=== PATIENT | male | born 1950 | race Caucasian/White ===

== ENCOUNTER 2018-02-18 10:08 | Day surgery (SDC) | payer OTHER, SELFPAY ==
[2018-02-11 10:14] VITALS: BMI 39.7
[2018-02-18 10:50] VITALS: BMI 40.9
[2018-02-18 10:58] VITALS: BP 131/80; PULSE 60; RESP 20; TEMP 36.2; O2SAT 97
--- NOTE | 2018-02-18 13:15 | PM.PREOP ---
Pre-operative Note Interval Note Pre-op Check: Yes History & Physical Reviewed by Physician Changes: No
[2018-02-18] MEDS: CEFAZOLIN 2 GM/100 ML FROZ.PIGGY IV (13:38)
--- NOTE | 2018-02-18 13:58 | SUR.OPER ---
Supine on padded OR bed, head on pillow, arms secured on padded arm boards at <90 degrees abduction, legs uncrossed, safety belt at thigh, tape over blanket over non-operative leg.
[2018-02-18] MEDS: BUPIVACAINE 0.5% (PF) VIAL 30 ML INJ (14:16)
[2018-02-18 14:35] VITALS: BP 125/71; PULSE 65; RESP 20; O2SAT 95
[2018-02-18] MEDS: HYDROCODONE/ACET 5/325 TABLET 1 TAB PO (14:54)
[2018-02-18 15:06] VITALS: BP 122/72; PULSE 60; RESP 16; TEMP 37.1; O2SAT 96
--- NOTE | 2018-02-18 17:43 | P.OP_ITS ---
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 Surgeon: Rosalee Parikh Click Yes if Unassisted: Yes Anesthesia Type: Sedation Operative Notes Closure Type: primary Specimen(s): none sent Estimated Blood Loss (mL): 20 Blood products transfused: none Procedure in detail: Patient was brought to the operating room and placed on the operating table in the supine position after induction of mild IV sedation local anesthesia using the above injectables was attained patient's left 3rd toe. The tourniquet was applied and foot and ankle were prepped and draped in the usual aseptic manner. After check of anesthesia , the tourniquet was inflated and the incision was made over the 3rd distal and proximal interphalangeal joint dorsally on the toe. The incision was deepened through subcutaneous tissues being careful to identify and retract all vital neural and vascular structures. All bleeders were cauterized and ligated as necessary. Immediately the field was invested fully with gouty tophus. This is gently scraped and removed using curettes etc and the noticeable contracture was seen at the distal interphalangeal joint. At this point there was a couple of areas of spurring at this joint and this large amount of tophus also appeared to be contributing to the contracture. A sharp excision of spurring and the distal tip of the intermediate and distal phalanx base were reduced using sharp bone cutters. This reduced the contracture and I was able to use a rasp to smooth this area down. At that point the toe was put through range of motion and was shown to have availability of motion without catching or grinding. The area was irrigated with copious amounts of normal sterile saline. The tourniquet was deflated and a prompt hyperemic response was seen to the toe. Monocryl was used to repair the remaining extensor tendon and part of this distally was completely frayed due to the investment of the gouty tophus, so this was placed within the former distal interphalangeal joint and sewn in with a Monocryl. Subcutaneous closure was also closed using Monocryl and the skin with nylon. A lightly compressive sterile dressing was placed on the foot and toe and he was transferred to the PACU with vital signs stable. Complications: none Condition: stable Disposition: PACU Plan for aftercare: Following a period of postoperative monitoring, the patient will be discharged home on written and oral postop instructions including keeping the dressing dry and intact, avoiding significant ambulation to the foot , elevating the foot when seated at home. DVT prevention of these have been reviewed. First postoperative visit has already been scheduled.
== END 2018-02-18 15:20 | disposition home or self-care (01) ==
PROVIDERS: PCP Family Medicine; Visit Provider Podiatrist
PROC: (CPT 28285; principal; 2018-02-18 12:15)
PROC: (CPT 28108; 2018-02-18 12:15)
DX: M1A.0721 Idiopathic chronic gout, left ankle and foot, with tophus (tophi) (principal); M24.575 Contracture, left foot; I48.91 Unspecified atrial fibrillation; G47.30 Sleep apnea, unspecified; E66.01 Morbid (severe) obesity due to excess calories; G47.33 Obstructive sleep apnea (adult) (pediatric); E78.5 Hyperlipidemia, unspecified; I10 Essential (primary) hypertension; I50.9 Heart failure, unspecified; Z87.891 Personal history of nicotine dependence
CPT/HCPCS: 28108; J0690; J2250; J2704; J3010

== ENCOUNTER → 2018-04-18 10:27 | Outpatient (CLI) | payer OTHER, MEDICARE, SELFPAY | PROVIDERS: PCP Family Medicine; Referring Provider Podiatrist; Visit Provider Family Medicine | DX: S91.105A Unspecified open wound of left lesser toe(s) without damage to nail, initial encounter (principal); M1A.9XX1 Chronic gout, unspecified, with tophus (tophi); L03.032 Cellulitis of left toe | CPT/HCPCS: 11042; 87070; 87075; 87077; 87186; 87205; 99203; 99213 ==

== ENCOUNTER → 2018-05-04 12:57 | Outpatient (CLI) | payer OTHER, SELFPAY | PROVIDERS: PCP Family Medicine; Visit Provider Family Medicine | DX: S91.105A Unspecified open wound of left lesser toe(s) without damage to nail, initial encounter (principal); L03.032 Cellulitis of left toe; M1A.9XX1 Chronic gout, unspecified, with tophus (tophi) | CPT/HCPCS: 11042; 87070; 87075; 87077; 87186; 87205; 99213 ==

== ENCOUNTER → 2018-05-11 09:55 | Outpatient (CLI) | payer OTHER, SELFPAY | PROVIDERS: PCP Family Medicine; Visit Provider Family Medicine | DX: S91.105A Unspecified open wound of left lesser toe(s) without damage to nail, initial encounter (principal); L03.032 Cellulitis of left toe; M1A.9XX1 Chronic gout, unspecified, with tophus (tophi); B96.29 Other Escherichia coli [E. coli] as the cause of diseases classified elsewhere | CPT/HCPCS: 11042 ==

== ENCOUNTER → 2018-05-18 08:55 | Outpatient (CLI) | payer OTHER, SELFPAY | PROVIDERS: PCP Family Medicine; Visit Provider Family Medicine | DX: M1A.9XX1 Chronic gout, unspecified, with tophus (tophi) (principal); S91.105A Unspecified open wound of left lesser toe(s) without damage to nail, initial encounter; L03.032 Cellulitis of left toe; B96.29 Other Escherichia coli [E. coli] as the cause of diseases classified elsewhere | CPT/HCPCS: 99213 ==

== ENCOUNTER → 2018-05-24 09:46 | Outpatient (CLI) | payer OTHER, SELFPAY | PROVIDERS: PCP Family Medicine; Visit Provider Family Medicine | DX: Z48.817 Encounter for surgical aftercare following surgery on the skin and subcutaneous tissue (principal) | CPT/HCPCS: 99212; 99213 ==

== ENCOUNTER → 2018-08-26 10:55 | Outpatient (CLI) | payer OTHER, SELFPAY ==
--- NOTE | 2018-08-26 | DI.RAD.S_ITS ---
PROCEDURE: XR CERVICAL SPINE 2V OR 3V INDICATIONS: NECK PAIN TECHNIQUE: 4 view(s) of the cervical spine were acquired. COMPARISON: None. FINDINGS: Bones: No fractures or dislocations to the C5 level. The lateral masses of C1 appear intact on the odontoid view. No suspicious bony lesions. Multilevel degenerative endplate sclerosis and spurring. Diffuse facet arthropathy. Mild narrowing of the visualized cervical disc spaces. Straightening of the normal cervical lordosis. Soft tissues: No prevertebral soft tissue swelling. IMPRESSION: Diffuse cervical spondylosis and facet arthropathy with straightening of the normal cervical lordosis. Dictated by: Davey Randall M.D. on 08/26/2018 at 11:33 Approved by: Davey Randall M.D. on 08/26/2018 at 11:35
== END ==
PROVIDERS: PCP Family Medicine; Visit Provider Family Medicine
DX: M50.122 Cervical disc disorder at C5-C6 level with radiculopathy (principal)
CPT/HCPCS: 72040

== ENCOUNTER → 2018-09-23 13:09 | Outpatient (CLI) | payer OTHER, SELFPAY ==
--- NOTE | 2018-09-23 13:24 | DI.MRI.S_ITS ---
PROCEDURE: MR CERVICAL SPINE WO CON INDICATIONS: CERVICAL RADICULOPATHY TECHNIQUE: Noncontrast sagittal T1 spin echo and T2 fast spin echo, sagittal STIR, foraminal oblique sagittal T2 fast spin echo, and axial gradient echo or T2 fast spin echo through the cervical spine. COMPARISON: [facility], CR, XR CERVICAL SPINE 2V OR 3V, 08/26/2018, 11:04. FINDINGS: Image quality: Limited by body habitus. Alignment and Curvature: There is trace C4 and C5 anterolisthesis. Bone Marrow: Minimal reactive endplate change noted adjacent to the C4-C5 and C5-C6 discs. Spinal Cord: Visualized spinal cord has normal size and signal. No cerebellar tonsillar herniation. Paraspinous Soft Tissues: No paravertebral masses. Prevertebral soft tissues are normal in thickness. C2-C3: Loss of disc signal. No central stenosis. Mild bilateral facet hypertrophy. Mild bilateral neural foraminal narrowing. No neural impingement. C3-C4: Loss of disc signal. Minimal, diffuse disc bulge. Mild bilateral facet hypertrophy. Moderate bilateral uncovertebral joint hypertrophy. Severe bilateral neural foraminal narrowing with compression of the exiting C4 nerve roots. C4-C5: Loss of disc signal and slight loss of disc height. Mild to moderate bilateral facet hypertrophy. Mild right and moderate left uncovertebral joint hypertrophy. Mild narrowing of the central canal. Moderate right and severe left neural foraminal narrowing and compression of the exiting left C5 nerve root. C5-C6: Loss of disc signal and height. Moderate, diffuse disc bulge. Moderate-sized central disc protrusion superimposed upon diffuse disc bulge. Mild to moderate narrowing of the central canal. Mild bilateral facet hypertrophy. Moderate right and mild left uncovertebral joint hypertrophy. Severe right and moderate left neural foraminal narrowing with compression of the exiting right C6 nerve root. C6-C7: Loss of disc signal. Mild, diffuse disc bulge. No central stenosis. No neural foraminal narrowing. No neural impingement. C7-T1: Normal appearance. IMPRESSION: 1. Multilevel degenerative disease 2. Multilevel facet arthropathy and uncovertebral joint hypertrophy. 3. Mild to moderate C5-C6 central canal narrowing. Mild C4-C5 central canal narrowing. 4. Severe bilateral C3-C4 neural foraminal narrowing. Moderate right and severe left C4-C5 neural foraminal narrowing. Severe right and moderate left C5-C6 neural foraminal narrowing. 5. Compression of the exiting bilateral C4 nerve roots, the exiting left C5 nerve root and the exiting right C6 nerve root secondary to neural foraminal narrowing. Please correlate with clinical data. Dictated by: Earline White MD, PhD on 09/23/2018 at 15:44 Approved by: Earline White MD, PhD on 09/23/2018 at 15:54
== END ==
PROVIDERS: PCP Family Medicine; Referring Provider Orthopaedic Surgery; Visit Provider Family Medicine
DX: M50.122 Cervical disc disorder at C5-C6 level with radiculopathy (principal); M47.22 Other spondylosis with radiculopathy, cervical region; M48.02 Spinal stenosis, cervical region
CPT/HCPCS: 72141

== ENCOUNTER → 2021-03-24 11:54 | Outpatient (CLI) | payer MEDICARE, OTHER, SELFPAY ==
[2021-03-24 20:18] LABS: BUN Creatinine Ratio 20.8 (6-22); Blood Urea Nitrogen 20 mg/dL (9-20); Calcium 10.4 mg/dL (8.4-10.2); Carbon Dioxide 32 mmol/L (22-32); Chloride 100 mmol/L (98-107); Estimated Glomerular Filt Rate > 60.0 mL/min (>60); Glucose 136 mg/dL (80-110); HEMOLYSIS < 15 (0-50); Magnesium 1.8 mg/dL (1.6-2.3); Potassium 4.6 mmol/L (3.4-5.1); Sodium 142 mmol/L (137-145)
== END ==
PROVIDERS: PCP Family Medicine; Referring Provider Nurse Practitioner Family; Visit Provider Nurse Practitioner Family
DX: Z51.81 Encounter for therapeutic drug level monitoring (principal); Z79.899 Other long term (current) drug therapy
CPT/HCPCS: 80048; 83735

== ENCOUNTER → 2021-08-07 10:59 | Outpatient (CLI) | payer MEDICARE, OTHER, SELFPAY ==
[2021-08-07 19:11] LABS: Hemoglobin A1C% w Est Avg Glu 7.8 % (4.0-6.0)
[2021-08-07 19:15] LABS: Add Manual Diff / Slide Review NO; Alanine Aminotransferase 29 IU/L (<50); Albumin 4.8 g/dL (3.5-5.0); Albumin Globulin Ratio 1.6 (1.0-2.8); Alkaline Phosphatase 59 U/L (38-126); Aspartate Aminotransferase 26 IU/L (17-59); Basophils Absolute Auto 100 /uL (0-100); Basophils Percent Auto 0.6 % (0-2); Bilirubin Total 0.6 mg/dL (0.2-1.3); Blood Urea Nitrogen 17 mg/dL (9-20); Calcium 9.7 mg/dL (8.4-10.2); Carbon Dioxide 24 mmol/L (22-32); Chloride 104 mmol/L (98-107); Cholesterol 201 mg/dL (140-199); Eosinophils Absolute Auto 200 /uL (0-450); Eosinophils Percent Auto 2.2 % (2-4); Estimated Glomerular Filt Rate > 60.0 mL/min (>60); Glucose 132 mg/dL (80-110); HDL Cholesterol 31 mg/dL (40-60); HEMOLYSIS < 15 (0-50); Hematocrit 41.6 % (41-53); Hemoglobin 13.8 g/dL (13.5-17.5); LDL Cholesterol Calculated 119 mg/dL (<100); Lymphocytes Absolute Auto 2400 /uL (1100-4500); Lymphocytes Percent Auto 27.9 % (25-40); Mean Corpuscular HGB Conc 33.1 % (30-36); Mean Corpuscular Hemoglobin 28.9 PG (26-34); Mean Corpuscular Volume 87.5 fL (80-100); Monocytes Absolute Auto 700 /uL (0-900); Monocytes Percent Auto 7.5 % (3-14); Neutrophils Absolute Auto 5300 /uL (1500-7000); Neutrophils Percent Auto 61.8 % (50-75); Platelet Count 328 X10^3/uL (150-400); Potassium 4.6 mmol/L (3.4-5.1); Red Blood Cell Count 4.76 X10^6/uL (4.5-5.9); Red Cell Distribution Width 14.5 % (11.6-14.8); Sodium 139 mmol/L (137-145); Total Protein 7.8 g/dL (6.3-8.2); Triglycerides 256 mg/dL (35-150); White Blood Cell Count 8.7 X10^3/uL (4.5-11.0)
[2021-08-07 19:24] LABS: Vitamin D 25 Hydroxy (D3) 37.5 ng/mL (30.0-100.0)
[2021-08-07 19:39] LABS: TSH w/ Reflex to FT4 2.53 uIU/mL (0.47-4.68)
[2021-08-08 10:15] LABS: Calcium 9.8 mg/dL (8.6-10.2); Parathyroid Hormone, Intact 39 pg/mL (15-65)
[2021-08-15 20:16] LABS: 1,25-Dihydroxy, Vitamin D-2 <10 pg/mL (.)
== END ==
PROVIDERS: PCP Physician Assistant; Referring Provider Physician Assistant; Visit Provider Physician Assistant
DX: E21.3 Hyperparathyroidism, unspecified (principal); Z12.5 Encounter for screening for malignant neoplasm of prostate; M10.9 Gout, unspecified; I10 Essential (primary) hypertension; E78.1 Pure hyperglyceridemia
CPT/HCPCS: 80053; 80061; 82306; 82310; 82652; 83036; 83970; 84443; 84550; 85025; G0103

== ENCOUNTER → 2021-12-11 09:18 | Outpatient (CLI) | payer MEDICARE, OTHER, SELFPAY ==
--- NOTE | 2021-12-15 15:53 | DIAB.MNT ---
Initial Diabetes Medical Nutrition Therapy Assessment Name: Solomon Ritchie Date: 12/11/21 Time: [id number] Dx: Type II Diabetes Provider: Cindy Carbajal presents today for initial visit with his , Kristyn. Reports a new diagnosis of T2Dm in August with an HgA1c of 7.8%. Has declined taking Metformin. Would prefer to reverse this with diet. Limited in exercise due to knee pain. Today he would like to know more about diabetes, blood sugar monitoring goals, and nutrition. States he and Kristyn recently went on a 13 month RV trip that included a lot of eating out at restaurants and breweries. Since diagnosis, he has cut down on beer (to 1-3 per week) and reduced sugar and carb intake. Reports h/o keto, intermittent fasting, paleo, and Mediterranean diet. Limited sleep at night, 3 hours. States he cannot turn off his brain. Uses audiobooks at night. Takes naps after eating, hyperglycemia? labs indicate elevated LDL, reports high intake of beef and sometimes butter. 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 No UE exercises. enjoys bike riding. Self-Monitoring Blood Glucose: None. Was checking, but states he was unsure of his goals. FBG was 108-160 mg/dL per report. Diabetes Medications: None Pertinent Labs: 08/2021 HgA1c: 7.8 % T Cholesterol: 201 LDL: 119 HDL: 31 Past Medical History: (Last Updated 08/07/21 @ 12:18 by Marylu White PA-C) Afib (~2001) Anticoagulated Bilateral carotid artery occlusion (~2014) Cancer (~2003) Excision - Neck/facial nerve/radiation Cardiomyopathy, idiopathic Carpal tunnel syndrome CHF (congestive heart failure) Chronic cough Chronic gout, unspecified, with tophus (tophi) Colon polyps Constipation Essential hypertension Foot pain H/O hyperparathyroidism Headache Hearing loss Heart disease History of cardioversion Multiple History of diverticulitis Hypercalcemia Idiopathic cardiomyopathy Knee pain Bone on bone Melanoma Obesity, Class III, BMI 40-49.9 (morbid obesity) Pain in right foot Peripheral neuropathy Plantar warts Shortness of breath Shoulder pain Sleep apnea Mild, no tx recommended Tinnitus Nutrition Rx: Carbohydrates: Meal: 45g (60g max) Snack:15-30g Nutrition Diagnosis: - Nutrition and food related knowledge deficit r/t newly dx with T2DM aeb hgA1c 7.8% and pt report - Predicted excessive saturated fat intake r/t nutrition knowledge deficit aeb diet recall and report of high beef intake and elevated LDL. - Physical inactivity r/t knee pain aeb pt report Intervention: This participant was very receptive. Provided appropriate educational handouts. Discussed the following topics: Completed intake assessment. Discussed barriers to care. Pathophysiology of T2DM HgA1c, its correlation to blood glucose numbers, and rationale for goal Importance of self-monitoring, how often, and when to check. Suggested checking at different times to evaluate meals. BG goals per ADA. FB-130 and 1-2hr pc <180 mg/dL Plate Method, impact of macronutrients on blood sugar, meal timing, carbohydrate counting, pairing macronutrients and spreading out carbohydrates for better blood glucose management Recommended servings for carbohydrates at meals and snacks Heart health nutrition Role of physical activity and following provider guidelines for safety Created SMART goals for patient self-care and success. Goals: Restart checking BG and keep a log Keep food log Aim for 45g at meals Follow-up: MICHELLE MONREAL follow-up in one month for DSME classes and 1:1 follow-up Staci Corona RDN, [facility] Certified Diabetes Care and Customer Complaint Clerk P: [phone] Thank you for this referral
== END ==
PROVIDERS: PCP Physician Assistant; Referring Provider Physician Assistant; Visit Provider Physician Assistant
DX: E11.9 Type 2 diabetes mellitus without complications (principal); Z71.3 Dietary counseling and surveillance
CPT/HCPCS: 97802

== ENCOUNTER → 2022-01-13 08:49 | Outpatient (CLI) | payer MEDICARE, OTHER, SELFPAY ==
--- NOTE | 2022-01-14 17:21 | DIAB.FU ---
Diabetes Education Class Series: Diabetes and Nutrition Name: Solomon Ritchie Date: 01/13/22 Time: [id number] Solomon presents today for 1 of 3 DSME classes with his , Kristyn. States he is working on keeping food and BG records. Has questions today about saturated fat in proteins. Enjoys red meat multiple times per week. States he is limited in his ability to be active but is motivated to make diet changes. Has questions about FBG elevations. Class topics covered: ? Debunk nutrition myths and discuss how to sustain healthy eating long-term through moderation and variety ? Define macronutrients and determine their impact on blood sugars ? Discuss macronutrient pairing, Plate Method, and carb counting ? Review general recommendations for carbohydrates ? Practice label reading ? Discuss the role of fiber in diabetes and provide examples of sources ? Review heart health nutrition: fats, fiber, and sodium ? Determine recommendations for grocery shopping and eating out ? Discuss alcohol recommendations ? Review the role of substitute sugars in diabetes management ? Set SMART goals Goal Set: Walk or movement outside for 15 min 3 x per week min. Follow-up: Diabetes Physiology and Medication Class in one week and 1:1 f/u tomorrow 01/14/22 Staci Corona RDN, [facility] Certified Diabetes Care and [employer] Transportation Worker P: [phone] Thank you for this referral
== END ==
PROVIDERS: PCP Physician Assistant; Referring Provider Physician Assistant; Visit Provider Physician Assistant
DX: E11.9 Type 2 diabetes mellitus without complications (principal); Z71.3 Dietary counseling and surveillance
CPT/HCPCS: G0109

== ENCOUNTER → 2022-01-14 09:01 | Outpatient (CLI) | payer MEDICARE, OTHER, SELFPAY ==
--- NOTE | 2022-01-22 17:08 | DIAB.MNTFU ---
Follow-up Diabetes Medical Nutrition Therapy Assessment Name: Solomon Ritchie Date: 01/14/22 Time: 910:10a Dx: Type II Diabetes Solomon presents for 1:1 follow-up with his Kristyn. States he has not been tracking food or BG very well recently due to [place] trip and recent covid. Endorses high saturated fat intake with beef portions 3-4x per week. Limited veggie intake but loves veggies. Has questions about a supplement to help with DM. No recent eye exam Does not check feet No annual flu shot Diet Recall: : eggs x 3, 2-4 toast 5-7p: sweet potato x with pro and veggies ; enchiladas avoids HS snack, but sometimes cookies or ice cream Anthropometrics: Ht: 5'11 Wt: 292# reported Physical Activity: Limited by knee pain. Interested in short frequent walks. No current program. Self-Monitoring Blood Glucose: Trying to check 1-2x per day. Recent readings below indicate some elevations in FBG per ADA guidelines. Few readings later in the day. One reading of 203 mg/dL. Date Pre Post Pre Post Pre Post HS 01/09 144 124 01/10 01/11 145 203 122 01/12 158 01/13 147 Diabetes Medications: None Pertinent Labs: 08/2021 HgA1c: 7.8 % T Cholesterol: 201 LDL: 119 HDL: 31 Past Medical History: (Last Updated 08/07/21 @ 12:18 by Marylu White PA-C) Afib (~2001) Anticoagulated Bilateral carotid artery occlusion (~2014) Cancer (~2003) Excision - Neck/facial nerve/radiation Cardiomyopathy, idiopathic Carpal tunnel syndrome CHF (congestive heart failure) Chronic cough Chronic gout, unspecified, with tophus (tophi) Colon polyps Constipation Essential hypertension Foot pain H/O hyperparathyroidism Headache Hearing loss Heart disease History of cardioversion Multiple History of diverticulitis Hypercalcemia Idiopathic cardiomyopathy Knee pain Bone on bone Melanoma Obesity, Class III, BMI 40-49.9 (morbid obesity) Pain in right foot Peripheral neuropathy Plantar warts Shortness of breath Shoulder pain Sleep apnea Mild, no tx recommended Tinnitus Nutrition Rx: Carbohydrates: Meal: 45g (60g max) Snack:15-30g Nutrition Diagnosis: - Nutrition and food related knowledge deficit r/t newly dx with T2DM aeb hgA1c 7.8% and pt report - Predicted excessive saturated fat intake r/t nutrition knowledge deficit aeb diet recall and report of high beef intake and elevated LDL. - Physical inactivity r/t knee pain aeb pt report - Predicted inadequate fiber intake r/t limited whole grains, fruit and vegetables aeb diet recall Intervention: This participant was very receptive. Provided appropriate educational handouts. Discussed the following topics: Blood sugar review and trends. Impact of food intake on results. Plate Method, impact of macronutrients on blood sugar, meal timing, carbohydrate counting, pairing macronutrients and spreading out carbohydrates for better blood glucose management Heart health nutrition: fats Meal planning and carb counting review Physical activity plan and progress Created SMART goals for patient self-care and success. Goals: Restart checking BG and keep a log- improved Keep food log- improved Aim for 45g at meals- in progress Add salad to lunch and dinner- new Buy veggies for eggs- new Measure carb portions at meals - new Follow-up: MICHELLE MONREAL follow-up in 1 week for class 2 of 3 for DSME Staci Corona RDN, [facility] Certified Diabetes Care and [place] Washing System Operator P: [phone] Thank you for this referral
== END ==
PROVIDERS: PCP Physician Assistant; Referring Provider Physician Assistant; Visit Provider Physician Assistant
DX: E11.9 Type 2 diabetes mellitus without complications (principal); Z71.3 Dietary counseling and surveillance
CPT/HCPCS: 97803

== ENCOUNTER → 2022-01-20 09:26 | Outpatient (CLI) | payer MEDICARE, OTHER, SELFPAY ==
--- NOTE | 2022-01-28 13:22 | DIAB.FU ---
Diabetes Education Class Series: Diabetes Physiology and Medications Name: Solomon Ritchie Date: 01/20/22 Time: [id number] Solomon presented with , Kristyn for class. He participated well in class and seemed very receptive. Class topics covered: ? Diabetes pathophysiology ? Discuss different types of diabetes ? Review criteria for diagnosing diabetes ? Review HgA1c measurement and associated blood sugars ? Review blood sugar monitoring safety, technique, and goals ? Discuss ways to reduce complications associated with diabetes, includes microvascular and macrovascular complications ? Review diabetes medications types, action, and side effects ? Health care visits recommended for people with T2DM ? Immunization recommended for people with T2DM ? SMART goals review Follow-up: Diabetes Lifestyle and Ongoing Support Class next week Staci Corona RDN, [facility] Certified Diabetes Care and Testing Consultant P: [phone] Thank you for this referral
== END ==
PROVIDERS: PCP Physician Assistant; Referring Provider Physician Assistant; Visit Provider Physician Assistant
DX: E11.9 Type 2 diabetes mellitus without complications (principal); Z71.3 Dietary counseling and surveillance
CPT/HCPCS: G0109

== ENCOUNTER → 2022-01-27 09:16 | Outpatient (CLI) | payer MEDICARE, OTHER, SELFPAY ==
--- NOTE | 2022-01-29 17:00 | DIAB.FU ---
Diabetes Education Class Series: Diabetes Lifestyle Change and Ongoing Support Name: Solomon Ritchie Date: 01/27/22 Time: [id number] Solomon presented to class 3 of 3 with his , Kristyn. States he has been working on using low carb tortillas and ww bread. Also endorses reading food labels. States he still is working on exercise, and he is interested in resistance bands for UE exercise. Class topics covered: ? Discuss the difference between physical activity and exercise ? Determine physical activity benefits and impact on diabetes ? Review physical activity recommendations and safety ? Discuss emergency preparedness ? Discuss diabetes and emotions (diabetes burnout/distress) ? Review and practice stress management techniques ? Review support groups and community resources ? Discuss the role of family support in diabetes care ? What is going well? Challenges of diabetes? ? Set SMART goals Follow-up: MICHELLE MONREAL follow-up in 4 weeks Staci Corona RDN, [facility] Certified Diabetes Care and Pad Hand P: [phone] Thank you for this referral
== END ==
PROVIDERS: PCP Physician Assistant; Referring Provider Physician Assistant; Visit Provider Physician Assistant
DX: E11.9 Type 2 diabetes mellitus without complications (principal); Z71.3 Dietary counseling and surveillance
CPT/HCPCS: G0109

== ENCOUNTER → 2022-02-26 12:56 | Outpatient (CLI) | payer MEDICARE, OTHER, SELFPAY ==
--- NOTE | 2022-02-26 15:47 | DIAB.FU ---
Follow-up Diabetes Education Assessment Name: Solomon Ritchie Date: 02/26/22 Time: 1-150p Dx: Type II Diabetes Solomon presents with , Kristyn for DM follow-up. Has not seen PCP since DSME and no appt scheduled. No new HgA1c. Historically wants to avoid medication management. States he has been paying more attention to carbs. Some breakfasts still high (ie oatmeal with toast and PB and fruit/raisins). Has been choosing brown rice over white, whole grain bread over white. Still having red meat often, but trying to reduce frequency. Reports difficulty with portions at times, especially when Kristyn offers her leftovers to him. Considering intermittent fasting and/or an online diet program. Has done intermittent fasting in the past with 7 hour eating window 10a-5p. Feels he has lost weight doing this before. Feels weight loss will help knee pain, though has seen a specialist in the past and needs a knee replacement. Expressed fear with cutting my leg in half, though has family/friends that have had positive experiences with this procedure. Has dental appt. No eye appt scheduled. Physical Activity: Bought resistance bands for UE exercises. use to love to hike and walk, but with knee pain he cannot do this comfortably. Physical activity has been a tough stage of change effort since starting program. Self-Monitoring Blood Glucose: Only checking FB-142 mg/dL Diabetes Medications: None Pertinent Labs: 08/2021 HgA1c: 7.8 % T Cholesterol: 201 LDL: 119 HDL: 31 Past Medical History: (Last Updated 08/07/21 @ 12:18 by Marylu White PA-C) Afib (~2001) Anticoagulated Bilateral carotid artery occlusion (~2014) Cancer (~2003) Excision - Neck/facial nerve/radiation Cardiomyopathy, idiopathic Carpal tunnel syndrome CHF (congestive heart failure) Chronic cough Chronic gout, unspecified, with tophus (tophi) Colon polyps Constipation Essential hypertension Foot pain H/O hyperparathyroidism Headache Hearing loss Heart disease History of cardioversion Multiple History of diverticulitis Hypercalcemia Idiopathic cardiomyopathy Knee pain Bone on bone Melanoma Obesity, Class III, BMI 40-49.9 (morbid obesity) Pain in right foot Peripheral neuropathy Plantar warts Shortness of breath Shoulder pain Sleep apnea Mild, no tx recommended Tinnitus Intervention: This participant was very receptive. Provided appropriate educational handouts. Discussed the following topics: Recent blood sugar results and HgA1c recs/rationale Medication management, potential for Metformin if HgA1c cont above 7% Physical activity barriers, namely knee pain and options Review of general nutrition recommendations and current intake Physical activity plan and impact on blood sugars Prevention of complications: dental and eye appointments Created SMART goals for patient self-care and success. Goals: Add salad to lunch and dinner- met Buy veggies for eggs- met Measure carb portions at meals - in progress/improved schedule eye exam- new Don't eat Kristyn's leftovers (she wont offer)- new Consider recs for knee replacement by specialist prn- new Resistance bands 3x per week- new Schedule with [facility] for f/u- new Follow-up: MICHELLE MONREAL follow-up prn. Offered follow-up, Solomon would like to call for support prn. he and Kristyn do seem to have most of the DM basics implemented, and are aware of where there is room for improvement. We did discuss the importance of getting his HgA1c/BG down, especially if he decides to get a knee replacement, which seems would help his physical activity/ BG fci. He agrees, but still feels weary of medication management. He was encouraged to follow-up with provider. Staci Corona RDN, [facility] Certified Diabetes Care and Wood Cut Engraver P: [phone] Thank you for this referral
== END ==
PROVIDERS: PCP Physician Assistant; Referring Provider Physician Assistant; Visit Provider Physician Assistant
DX: E11.9 Type 2 diabetes mellitus without complications (principal); Z71.3 Dietary counseling and surveillance
CPT/HCPCS: G0108

== ENCOUNTER → 2022-03-05 14:24 | Outpatient (CLI) | payer MEDICARE, OTHER, SELFPAY ==
[2022-03-05 19:38] LABS: BUN Creatinine Ratio 20.2 (6-22); Blood Urea Nitrogen 21 mg/dL (9-20); Calcium 9.6 mg/dL (8.4-10.2); Carbon Dioxide 25 mmol/L (22-32); Chloride 103 mmol/L (98-107); Estimated Glomerular Filt Rate > 60 mL/min (>60); Glucose 160 mg/dL (80-110); HEMOLYSIS < 15 (0-50); Magnesium 1.6 mg/dL (1.6-2.3); Potassium 4.2 mmol/L (3.4-5.1); Sodium 139 mmol/L (137-145)
[2022-03-05 19:40] LABS: Uric Acid 6.3 mg/dL (3.5-8.5)
[2022-03-05 19:59] LABS: Hemoglobin A1C% w Est Avg Glu 6.4 % (4.0-6.0)
== END ==
PROVIDERS: PCP Physician Assistant; Visit Provider Nurse Practitioner Family
DX: Z79.899 Other long term (current) drug therapy (principal); Z51.81 Encounter for therapeutic drug level monitoring; M10.9 Gout, unspecified; E11.9 Type 2 diabetes mellitus without complications
CPT/HCPCS: 80048; 83036; 83735; 84550

== ENCOUNTER → 2023-01-13 09:05 | Outpatient (CLI) | payer MEDICARE, OTHER, SELFPAY ==
[2023-01-13 10:12] LABS: Appearance Urine UA CLEAR; Bilirubin Urine UA NEGATIVE (NEGATIVE); Color Urine UA YELLOW; Glucose Urine UA NEGATIVE (Negative); Ketones Urine UA NEGATIVE (NEGATIVE); Leukocyte Esterase Urine UA NEGATIVE (NEGATIVE); Nitrite Urine UA NEGATIVE (Negative); Occult Blood Urine UA NEGATIVE (Negative); Protein Urine UA NEGATIVE (Negative); Specific Gravity Urine UA 1.015 (1.000-1.035); Urobilinogen Urine UA 0.2 E.U./dL (0.2); pH Urine UA 5.5 (4.5-8.0)
[2023-01-13 10:13] LABS: Add Manual Diff / Slide Review NO; Basophils Absolute Auto 100 /uL (0-100); Basophils Percent Auto 0.6 % (0-2); Eosinophils Absolute Auto 200 /uL (0-450); Eosinophils Percent Auto 2.6 % (2-4); Hematocrit 40.1 % (41-53); Hemoglobin 13.8 g/dL (13.5-17.5); Lymphocytes Absolute Auto 2100 /uL (1100-4500); Lymphocytes Percent Auto 25.4 % (25-40); Mean Corpuscular HGB Conc 34.3 % (30-36); Mean Corpuscular Volume 87.4 fL (80-100); Monocytes Absolute Auto 700 /uL (0-900); Monocytes Percent Auto 8.2 % (3-14); Neutrophils Absolute Auto 5100 /uL (1500-7000); Neutrophils Percent Auto 63.2 % (50-75); Platelet Count 328 X10^3/uL (150-400); Red Blood Cell Count 4.58 X10^6/uL (4.5-5.9); Red Cell Distribution Width 13.9 % (11.6-14.8); White Blood Cell Count 8.1 X10^3/uL (4.5-11.0)
[2023-01-13 10:17] LABS: Hemoglobin A1C% w Est Avg Glu 7.8 % (4.0-6.0)
[2023-01-13 10:41] LABS: Creatinine Urine Random 52.5 mg/dL
[2023-01-13 10:42] LABS: HEMOLYSIS < 15 (0-50); Iron 100 ug/dL (49-181)
[2023-01-13 10:49] LABS: Microalbumin Urine Random < 0.6 mg/dL (0-1.6)
[2023-01-13 10:53] LABS: Percent Iron Saturation 25 % (20-50); Total Iron Binding Capacity 393 ug/dL (261-462); Transferrin 292 mg/dL (206-381)
[2023-01-13 10:54] LABS: Alanine Aminotransferase 33 IU/L (<50); Albumin 4.4 g/dL (3.5-5.0); Albumin Globulin Ratio 1.5 (1.0-2.8); Alkaline Phosphatase 56 U/L (38-126); Aspartate Aminotransferase 24 IU/L (17-59); BUN Creatinine Ratio 29.9 (6-22); Bilirubin Total 0.5 mg/dL (0.2-1.3); Blood Urea Nitrogen 20 mg/dL (9-20); Calcium 9.6 mg/dL (8.4-10.2); Carbon Dioxide 23 mmol/L (22-32); Chloride 104 mmol/L (98-107); Estimated Glomerular Filt Rate > 60 mL/min (>60); Globulin 2.9 g/dL (1.7-4.1); Glucose 181 mg/dL (80-110); HEMOLYSIS < 15 (0-50); Potassium 4.7 mmol/L (3.4-5.1); Sodium 138 mmol/L (137-145); Total Protein 7.3 g/dL (6.3-8.2); Uric Acid 5.9 mg/dL (3.5-8.5)
[2023-01-13 11:12] LABS: Prostate Specific Antigen Scrn 1.41 ng/mL (0.1-4.0)
[2023-01-13 11:16] LABS: Ferritin 79 ng/mL (18-464)
== END ==
PROVIDERS: Physician Assistant Medical; Referring Provider Physician Assistant; Visit Provider Physician Assistant
DX: Z12.5 Encounter for screening for malignant neoplasm of prostate; E78.1 Pure hyperglyceridemia; E11.9 Type 2 diabetes mellitus without complications; G62.9 Polyneuropathy, unspecified; I10 Essential (primary) hypertension; M10.9 Gout, unspecified; M17.0 Bilateral primary osteoarthritis of knee
CPT/HCPCS: 36415; 80053; 81003; 82043; 82570; 82728; 83036; 83540; 83550; 84550; 85025; G0103

== ENCOUNTER → 2023-04-12 09:29 | Outpatient (CLI) | payer MEDICARE, OTHER, SELFPAY ==
[2023-04-12 19:48] LABS: Hemoglobin A1C% w Est Avg Glu 6.8 % (4.0-6.0)
[2023-04-12 19:54] LABS: Cholesterol 201 mg/dL (140-199); HDL Cholesterol 29 mg/dL (40-60); LDL Cholesterol Calculated 125 mg/dL (<100); Triglycerides 235 mg/dL (35-150)
[2023-04-12 22:10] LABS: INR 1.3 (0.9-1.3); Prothrombin Time 14.5 SECONDS (9.4-12.5)
== END ==
PROVIDERS: PCP Family Medicine; Visit Provider Family Medicine
DX: Z01.818 Encounter for other preprocedural examination (principal); E11.40 Type 2 diabetes mellitus with diabetic neuropathy, unspecified; I10 Essential (primary) hypertension; E78.5 Hyperlipidemia, unspecified
CPT/HCPCS: 80061; 83036; 85610

== ENCOUNTER → 2023-07-22 09:04 | Outpatient (CLI) | payer MEDICARE, OTHER, SELFPAY ==
[2023-07-22 18:54] LABS: BUN Creatinine Ratio 28.1 (6-22); Blood Urea Nitrogen 18 mg/dL (9-20); Calcium 10.2 mg/dL (8.4-10.2); Carbon Dioxide 27 mmol/L (22-32); Chloride 104 mmol/L (98-107); Estimated Glomerular Filt Rate > 60 mL/min (>60); Glucose 144 mg/dL (80-110); HEMOLYSIS < 15 (0-50); Potassium 4.3 mmol/L (3.4-5.1); Sodium 142 mmol/L (137-145)
== END ==
PROVIDERS: PCP Family Medicine; Visit Provider Family Medicine
DX: Z01.812 Encounter for preprocedural laboratory examination (principal)
CPT/HCPCS: 80048

== ENCOUNTER → 2024-01-17 14:52 | Outpatient (CLI) | payer MEDICARE, OTHER, SELFPAY ==
--- NOTE | 2024-01-17 14:53 | DI.US.S_ITS ---
PROCEDURE: US SCROTUM INDICATIONS: hx hydrocele and ? hernia TECHNIQUE: Real-time scanning was performed of the scrotum and testicles, with image documentation. Color and pulse Doppler interrogation was performed of both testicles. COMPARISON: Outside Facility, US, US SCROTUM, 11/21/2019, 14:13. FINDINGS: Right: Testicle is normal in size at 4.1 x 2.3 x 3.7 cm, and homogenous in echotexture. Epididymis is normal in overall size and morphology. No varicoceles. Small right hydrocele. Mild tubular ectasia of the rete testis. Overlying scrotal skin is normal in thickness. Left: Testicle is normal in size at 4.6 x 2.5 x 3.2 cm, and homogeneous in echotexture. Epididymis is normal in overall size and morphology. No hydrocele. Mild varicocele. Overlying scrotal skin is normal in thickness. Mild tubular ectasia of the rete testis Doppler: Color and pulse Doppler demonstrate normal and symmetric arterial flow in both testicles. IMPRESSION: 1. Small right hydrocele. 2. Mild left varicocele. 3. No sonographic evidence of testicular torsion. Dictated by: Hardik Sow M.D. on 01/18/2024 at 13:55 Approved by: Hardik Sow M.D. on 01/18/2024 at 13:58
== END ==
PROVIDERS: PCP Family Medicine; Referring Provider Physician Assistant; Visit Provider Physician Assistant
DX: I70.0 Atherosclerosis of aorta (principal); N43.3 Hydrocele, unspecified; I86.1 Scrotal varices
CPT/HCPCS: 76870

== ENCOUNTER → 2024-01-27 08:45 | Outpatient (CLI) | payer MEDICARE, OTHER, SELFPAY ==
[2024-01-27 10:08] LABS: Hematocrit 41.6 % (41-53); Hemoglobin 13.8 g/dL (13.5-17.5); Mean Corpuscular HGB Conc 33.1 % (30-36); Mean Corpuscular Volume 87.9 fL (80-100); Platelet Count 362 X10^3/uL (150-400); Red Blood Cell Count 4.74 X10^6/uL (4.5-5.9); Red Cell Distribution Width 14.8 % (11.6-14.8); White Blood Cell Count 9.3 X10^3/uL (4.5-11.0)
[2024-01-27 10:40] LABS: Alanine Aminotransferase 26 IU/L (<50); Albumin 4.5 g/dL (3.5-5.0); Albumin Globulin Ratio 1.7 (1.0-2.8); Alkaline Phosphatase 59 U/L (38-126); Aspartate Aminotransferase 22 IU/L (17-59); BUN Creatinine Ratio 22.4 (6-22); Bilirubin Total 0.4 mg/dL (0.2-1.3); Blood Urea Nitrogen 19 mg/dL (9-20); Calcium 10.3 mg/dL (8.4-10.2); Carbon Dioxide 28 mmol/L (22-32); Chloride 103 mmol/L (98-107); Cholesterol 191 mg/dL (140-199); Estimated Glomerular Filt Rate > 60 mL/min (>60); Globulin 2.6 g/dL (1.7-4.1); Glucose 148 mg/dL (80-110); HDL Cholesterol 34 mg/dL (40-60); HEMOLYSIS < 15 (0-50); LDL Cholesterol Calculated 112 mg/dL (<100); Sodium 139 mmol/L (137-145); Total Protein 7.1 g/dL (6.3-8.2); Triglycerides 225 mg/dL (35-150)
[2024-01-27 10:47] LABS: Magnesium 1.5 mg/dL (1.6-2.3)
[2024-01-27 10:57] LABS: Potassium 5.4 mmol/L (3.4-5.1)
== END ==
PROVIDERS: Nurse Practitioner Family; PCP Family Medicine; Referring Provider Physician Assistant; Visit Provider Physician Assistant
DX: Z79.899 Other long term (current) drug therapy; I10 Essential (primary) hypertension; E78.5 Hyperlipidemia, unspecified
CPT/HCPCS: 36415; 80053; 80061; 83036; 83735; 85027

== ENCOUNTER → 2024-02-04 14:03 | Outpatient (CLI) | payer MEDICARE, OTHER, SELFPAY ==
[2024-02-04 18:21] LABS: Alanine Aminotransferase 30 IU/L (<50); Albumin 4.4 g/dL (3.5-5.0); Albumin Globulin Ratio 1.4 (1.0-2.8); Alkaline Phosphatase 68 U/L (38-126); Aspartate Aminotransferase 26 IU/L (17-59); Bilirubin Total 0.3 mg/dL (0.2-1.3); Blood Urea Nitrogen 27 mg/dL (9-20); Calcium 9.9 mg/dL (8.4-10.2); Carbon Dioxide 24 mmol/L (22-32); Chloride 103 mmol/L (98-107); Estimated Glomerular Filt Rate > 60 mL/min (>60); Globulin 3.1 g/dL (1.7-4.1); Glucose 150 mg/dL (80-110); HEMOLYSIS 19 (0-50); Potassium 4.6 mmol/L (3.4-5.1); Sodium 138 mmol/L (137-145); Total Protein 7.5 g/dL (6.3-8.2)
[2024-02-04 18:37] LABS: Vitamin D 25 Hydroxy (D3) 26.4 ng/mL (30.0-100.0)
[2024-02-04 18:51] LABS: Thyroid Stimulating Hormone 2.49 uIU/mL (0.47-4.68)
[2024-02-06 00:07] LABS: Calcium 9.8 mg/dL (8.6-10.2); Parathyroid Hormone, Intact 42 pg/mL (15-65)
== END ==
PROVIDERS: PCP Family Medicine; Visit Provider Family Medicine
DX: E05.90 Thyrotoxicosis, unspecified without thyrotoxic crisis or storm (principal); E83.52 Hypercalcemia; E87.5 Hyperkalemia
CPT/HCPCS: 80053; 82306; 82310; 83970; 84443

== ENCOUNTER → 2024-02-17 09:54 | Outpatient (CLI) | payer MEDICARE, OTHER, SELFPAY ==
[2024-02-17 21:29] LABS: Creatinine Urine Random 50.13 mg/dL
[2024-02-17 21:38] LABS: Microalbumin Urine Random < 0.6 mg/dL (0-1.6)
== END ==
PROVIDERS: PCP Family Medicine; Visit Provider Family Medicine
DX: E11.40 Type 2 diabetes mellitus with diabetic neuropathy, unspecified (principal)
CPT/HCPCS: 82043; 82570

== ENCOUNTER → 2024-08-24 08:58 | Outpatient (CLI) | payer MEDICARE, OTHER, SELFPAY ==
[2024-08-24 10:19] LABS: Hemoglobin A1C% w Est Avg Glu 6.6 % (4.0-6.0)
[2024-08-24 10:46] LABS: Prostate Specific Antigen Scrn 1.64 ng/mL (0.1-4.0)
[2024-08-27 22:07] LABS: QuantiFERON Mitogen Value >10.00 IU/mL (.); QuantiFERON Nil Value 0.08 IU/mL (.); QuantiFERON TB Gold Plus Negative (Negative); QuantiFERON TB1 Ag Value 0.07 IU/mL (.); QuantiFERON TB2 Ag Value 0.06 IU/mL (.)
== END ==
PROVIDERS: PCP Family Medicine; Referring Provider Family Medicine; Visit Provider Family Medicine
DX: E11.40 Type 2 diabetes mellitus with diabetic neuropathy, unspecified (principal); Z12.5 Encounter for screening for malignant neoplasm of prostate; R05.9 Cough, unspecified
CPT/HCPCS: 36415; 83036; 86480; G0103

== ENCOUNTER → 2024-08-25 06:34 | Outpatient (CLI) | payer MEDICARE, OTHER, SELFPAY ==
--- NOTE | 2024-08-25 06:36 | DI.CT.S_ITS ---
PROCEDURE: CT CHEST WO CON INDICATIONS: cough longstanding, abnl cxr TECHNIQUE: Noncontrast 5 mm thick sections acquired from the pulmonary apices to the posterior costophrenic angles. 1 mm lung window, 5 mm thick coronal and sagittal and 7 mm axial MIP reformats were then acquired. For radiation dose reduction, the following was used: automated exposure control, adjustment of mA and/or kV according to patient size. COMPARISON: [facility] ([place]), CR, XR RIBS LT MIN 3V W CXR1V, 04/24/2024, 12:39. [facility] ([place]), CR, XR CHEST 2V, 01/10/2024, 8:34. FINDINGS: Image quality: Diagnostic. Lower Neck: No enlarged lymph nodes. Thyroid: No thyroid nodules which require sonographic follow up, per consensus guidelines. Axillae: No enlarged lymph nodes. Chest Wall: Unremarkable. Bones: Visualized osseous structures appear intact without acute fracture or focal destructive lesion. No acute compression fractures of the imaged spine. Lungs and Pleura: No pneumothorax or pleural effusions. No focal consolidation. No suspicious pulmonary nodules. No septal thickening or nodularity. Visualized airways appear patent. Mild streaky bibasilar atelectasis/scarring. Heart: Heart size is normal. Multivessel atherosclerotic calcifications of the coronary arteries. No pericardial effusion. Thoracic Vessels: The aorta and pulmonary arteries demonstrate normal size. Mediastinum and Radha: No enlarged lymph nodes. Esophagus: No wall thickening. No hiatal hernia. Upper Abdomen: Visualized upper abdomen solid organs and bowel loops appear normal. IMPRESSION: Chest without acute cardiopulmonary abnormalities. No suspicious pulmonary nodules or acute airspace disease. Minimal bibasilar atelectasis/scarring. Atherosclerotic coronary artery calcifications. Dictated by: Sp Leon M.D. on 08/26/2024 at 0:29 Approved by: Sp Leon M.D. on 08/26/2024 at 0:37
== END ==
PROVIDERS: PCP Family Medicine; Referring Provider Family Medicine; Visit Provider Family Medicine
DX: I25.10 Atherosclerotic heart disease of native coronary artery without angina pectoris (principal); R05.9 Cough, unspecified
CPT/HCPCS: 71250

== ENCOUNTER → 2025-02-01 08:30 | Outpatient (CLI) | payer MEDICARE, OTHER, SELFPAY ==
[2025-02-01 19:12] LABS: Microalbumi Creatinin Ratio Ur 11.0 ug/mg CR (<30)
== END ==
PROVIDERS: PCP Family Medicine; Visit Provider Family Medicine
DX: E11.36 Type 2 diabetes mellitus with diabetic cataract (principal); E11.40 Type 2 diabetes mellitus with diabetic neuropathy, unspecified; E78.2 Mixed hyperlipidemia
CPT/HCPCS: 82043; 82570